=== PATIENT | female | born 1985 | race Caucasian/White ===

== ENCOUNTER 2017-11-26 20:58 | Emergency (ER) | payer MEDICAID ==
[~2017-11-26] VITALS: Ht 162.6 cm; Wt 82.2 kg
[2017-11-26 21:12] VITALS: BP 123/79
== END 2017-11-26 22:22 | disposition home or self-care (01) ==
LOC: ED 22:00
DX: H66.002 Acute suppurative otitis media without spontaneous rupture of ear drum, left ear (principal); Z88.8 Allergy status to other drugs, medicaments and biological substances
CPT/HCPCS: 99283